=== PATIENT | male | born 2000 | race Two or more races ===

== ENCOUNTER 2019-03-01 12:58 | Emergency (ER) | payer MEDICAID ==
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
[2019-03-01] MEDS ORDERED: LET GEL TOPICAL 1 EA SYR TP ONE (13:32)
[2019-03-01] MEDS ORDERED: CYCLOBENZAPRINE 10 MG TAB PO ONE (13:48)
[2019-03-01] MEDS ORDERED: IBUPROFEN 800 MG TAB PO ONE (13:48)
[2019-03-01 14:23] VITALS: BP 128/72
== END 2019-03-01 14:24 | disposition home or self-care (01) ==
DX: S49.91XA Unspecified injury of right shoulder and upper arm, initial encounter (principal); V18.0XXA Pedal cycle driver injured in noncollision transport accident in nontraffic accident, initial encounter; Y93.55 Activity, bike riding; Y92.480 Sidewalk as the place of occurrence of the external cause